=== PATIENT | female | born 1965 | race Caucasian/White ===

== ENCOUNTER 2017-07-26 10:35 | Day surgery (SDC) | payer OTHER, SELFPAY ==
[2017-07-26] VITALS (11 sets, daily range): BP systolic 80–147; BP diastolic 54–97; PULSE 67–99; RESP 15–20; TEMP 36.3; O2SAT 93–98; BMI 30.5
[2017-07-26 11:05] LABS: Urine Pregnancy, HCG Qual. Negative (Negative)
--- NOTE | 2017-07-26 12:12 | HMH.PROC ---
[facility] Procedure Note Procedure Note:: Colonoscopy Procedure Report: Colonoscopy with cold snare polypectomy Endoscopist: Erich Gerard II, MD Referring physician: Jules Johnson MD Date of Procedure: July 26, 2017 Equipment: Olympus 180 variable stiffness pediatric colonoscope Sedation: Fentanyl 200 mg IV/ Versed 9 mg IV Indication: Mrs. Willoughby is a 50-year-old female who is here for initial screening colonoscopy. She has had some diarrhea especially after cholecystectomy 5 years ago. She has had no recent change in bowel habits. She reports no abdominal pain, weight loss, rectal bleeding or family history of an cancer. Procedure: Prior to the procedure, a history and physical exam was performed, and patient's medications and allergies were reviewed. The risks, benefits and alternatives of the sedation and procedure were discussed with the patient. All questions were answered and informed consent was obtained. The patient was brought to the procedure room. Patient identification and proposed procedure were verified by the physician and the nurse. The patient was placed in a left lateral decubitus position and the scope was passed under direct vision. Throughout the procedure, the patient's blood pressure, pulse, and oxygen saturations were monitored continuously. The colonoscopy was accomplished without difficulty. The patient tolerated the procedure well. Findings: On digital rectal examination there was normal rectal tone. There were no external hemorrhoids. The colonoscope was introduced through the anal canal to the rectum and advanced to the cecum. The ileocecal valve and appendiceal orifice were identified. The scope was advanced a short distance into the ileum which appeared grossly normal. The scope was then withdrawn into the colon. The cecum, ascending and transverse colon and mucosa were grossly normal. There was a single 6 mm polyp in the descending colon removed via cold snare polypectomy. There were scattered diverticuli throughout the descending and sigmoid colon (LEFT colon). The rectum itself was normal. Upon retroflexion within the rectum there were grade 1 internal hemorrhoids. Impression: 1. Descending colon polyp 2. Left-sided diverticulosis 3. Grade 1 internal hemorrhoids Plan: I will follow up the polyp histology. If the polyp is adenomatous, I would recommend repeat screening/surveillance colonoscopy in 5 years. I would recommend Colestid 2 g p.o. twice daily for her cholerrheic diarrhea.
== END 2017-07-26 12:55 | disposition home or self-care (01) ==
LOC: OUTP 10:38
PROVIDERS: PCP Family Medicine; Visit Provider Internal Medicine Gastroenterology
PROC: 0DJD8ZZ Inspection of Lower Intestinal Tract, Via Natural or Artificial Opening Endoscopic (ICD-10-PCS; CPT 45378; principal; 2017-07-26 11:30)
DX: Z12.11 Encounter for screening for malignant neoplasm of colon (principal); K63.5 Polyp of colon; K57.30 Diverticulosis of large intestine without perforation or abscess without bleeding; K64.0 First degree hemorrhoids
CPT/HCPCS: 45380; 81025; 99152

== ENCOUNTER → 2019-10-01 11:45 | Outpatient (CLI) | payer OTHER, SELFPAY ==
--- NOTE | 2019-10-01 | XR_ITS ---
PROCEDURE: XR THORACIC SPINE 3V CLINICAL INDICATION: Right-sided back pain COMPARISON: No exams were available for comparison FINDINGS: There is minimal lower thoracic curvature convex left. Mild multilevel degenerative disc disease is present in the mid and lower thoracic spine with decrease in the disc space and osteophyte formation. No fracture or dislocation. No lytic or blastic change. IMPRESSION: Degenerative changes mid and lower thoracic spine Dictated by: Carlos Enrique Astorga MD 10/01/2019 12:49 Electronically signed by Carlos Enrique Astorga MD in [place] 10/01/2019 12:49
--- NOTE | 2019-10-01 | XR_ITS ---
PROCEDURE: XR LUMBAR SPINE MIN 4V CLINICAL INDICATION: Right-sided back pain COMPARISON: No exams were available for comparison FINDINGS: Normal alignment. No fracture or dislocation. There are minimal endplate hypertrophic changes at L2 and L3. Mild facet arthritic changes are present on the left at L5-S1. No lytic or blastic change. IMPRESSION: Mild degenerative changes Dictated by: Carlos Enrique Astorga MD 10/01/2019 12:48 Electronically signed by Carlos Enrique Astorga MD in [place] 10/01/2019 12:48
== END ==
PROVIDERS: PCP Family Medicine; Visit Provider Family Medicine
DX: M54.6 Pain in thoracic spine (principal); M54.5 Low back pain
CPT/HCPCS: 72072; 72110

== ENCOUNTER 2019-10-16 09:00 | Outpatient (RCR) | payer OTHER, SELFPAY ==
--- NOTE | 2019-10-13 09:19 | HMH.PTOPEV ---
PT Outpatient Evaluation Rehab PT Outpatient Evaluation Start: 10/13/19 09:10 Freq: Status: Active Protocol: Document 10/13/19 09:10 JENNY (Rec: 10/13/19 09:19 JENNY [id number]) Electronically Signed By Bradley Patel, PT 10/13/19 09:10 Outpatient Therapy Subjective History Subjective History Pt reports h/o chronic mid back and LBP for ~10yrs, however, reports exacerbation over the last ~2months. Pt reports no radicular s/s in LE 's, however, reports severe L= R sided thoracic and lumbar region pain. Chief Complaint Pain,Stiff Symptom Type Ache,Sharp,Dull,Burning Symptoms Relieved By Rest/Positioning,OTC Meds Symptoms Aggravated By Bending/Stooping,Physical Activity,Lifting Prior Functional Limitations Lifting,Housework Current Functional Limitations Lifting,Housework,Standing, Sitting,Walking,Bending/ Stooping Symptom Description Constant but Variable Level of pain today (0-10) 5 Pain scale - at its best (0-10) 5 Pain scale - at its worst (0-10) 9 Lumbopelvic Eval Posture Thoracic Spine Posture Standing Position Neutral Lumbar Spine Posture Standing Position Neutral Assistive device Assistive Devices None / NA Gait Observation General Gait Pattern Observation Antalgic Gait Palapation tenderness bilateral thoracic spinal tenderness Yes: 3/4 lumbar spinal tenderness Yes: 3/4 paraspinal tenderness Yes: 3/4 Lumbar/Sacral Palpation Findings Tenderness,Trigger Point, Muscle Guarding Accessory Movement T-spine Vertebrae Accessory Movements Central P/A Lenora that Elicit Symptoms T10 bilateral T11 bilateral T12 bilateral L-spine Vertebrae Accessory Movements Central P/A Lenora that Elicit Symptoms L2 bilateral L3 bilateral L4 bilateral L5 bilateral S1 bilateral Range of Motion Lumbar Spine Active Flexion Range of 0-25 Motion (degrees) Lumbar Spine Active Extension Range of 0-10 Motion (degrees) Left Lumbar Spine Lateral Flexion Active 0-20 Range of Motion (degrees) Right Lumbar Spine Lateral Flexion 0-20 Active Range of Motion (degrees) Lumbar Spine ROM Limitations Soft Tissue Tightness,Pain Manual Muscle Test Bilateral Knee Extension Strength Grade
== END 2019-10-16 09:05 | disposition home or self-care (01) ==
LOC: PT 09:00
PROVIDERS: Visit Provider Family Medicine
DX: M54.5 Low back pain (principal); M54.6 Pain in thoracic spine
CPT/HCPCS: 97010; 97014; 97035; 97110; 97140; 97163; G0283

== ENCOUNTER → 2019-11-17 08:14 | Outpatient (POV) | payer OTHER, SELFPAY | PROVIDERS: PCP Family Medicine; Visit Provider Physician Assistant | DX: Z00.00 Encounter for general adult medical examination without abnormal findings (principal) ==

== ENCOUNTER → 2020-03-15 17:35 | Outpatient (CLI) | payer OTHER, SELFPAY ==
[2020-03-15 18:31] LABS: Basophils # 0.1 K/mm3 (0-0.2); Basophils % 1.3 % (0.1-2.0); Eosinophils # 0.2 K/mm3 (0.0-0.4); Eosinophils % 3.2 % (0.1-12.0); Hematocrit 46.4 % (37.0-47.0); Hemoglobin 14.8 g/dL (12.2-16.2); Lymphocytes # 2.1 K/mm3 (0.7-4.5); Lymphocytes % 31.5 % (10-50); Mean Corpuscular HGB Conc 31.8 g/dL (31.8-35.4); Mean Corpuscular Hemoglobin 31.2 pg (27.0-31.2); Mean Corpuscular Volume 98.1 fl (81-99); Mean Platelet Volume 10.2 fl (7.4-10.4); Monocytes # 0.5 K/mm3 (0.1-1.0); Monocytes % 6.9 % (1.7-9.3); Neutrophils # 3.8 K/mm3 (1.8-7.8); Neutrophils % 57.1 % (37.0-80.0); Platelet Count 324 K/mm3 (142-424); Red Blood Count 4.72 M/mm3 (4.20-5.40); White Blood Count 6.7 K/mm3 (4.8-10.8)
[2020-03-15 18:37] LABS: Alanine Aminotransferase 12 U/L (12-78); Albumin Level 4.5 g/dl (3.5-5.0); Albumin/Globulin Ratio 1.6 (1.1-1.8); Alkaline Phosphatase 60 U/L (38-126); Anion Gap 11.5 mEq/L (5-15); Aspartate Amino Transferase 20 U/L (14-36); Bilirubin,Total 0.5 mg/dl (0.2-1.3); Blood Urea Nitrogen 13 mg/dl (7-17); Calcium 9.9 mg/dl (8.4-10.2); Carbon Dioxide 26 mmol/L (22.0-30.0); Chloride 108 mmol/L (98-107); Chol/HDL Ratio 4.5 (1-3.5); Cholesterol 241 mg/dl (140-200); Estimated Glomerular Filt Rate 104 ml/min (>60); GFR (African American) 126 ML/MIN (>60); Globulin 2.8 g/dL (1.3-3.2); Glucose 117 mg/dl (74-100); HDL Cholesterol 54 mg/dl (40-60); Potassium 3.5 mmoL/L (3.5-5.1); Sodium 142 mmol/L (136-145); Total Protein,Serum 7.3 g/dl (6.3-8.2); Triglycerides 196 mg/dl (30-150); VLDL Cholesterol 39 mg/dL (0-40)
[2020-03-15 18:50] LABS: 25-OH Vitamin D, Total 43.8 ng/mL (30-100); Direct LDL Cholesterol 163.05 mg/dL (100-129)
== END ==
LOC: LAB.DROPOF 17:35
PROVIDERS: Visit Provider Emergency Medicine
DX: I10 Essential (primary) hypertension (principal); E55.9 Vitamin D deficiency, unspecified; R53.83 Other fatigue
CPT/HCPCS: 80053; 80061; 82306; 84439; 84443; 85025

== ENCOUNTER → 2020-04-16 08:15 | Outpatient (CLI) | payer OTHER, SELFPAY ==
--- NOTE | 2020-04-16 08:28 | MR_ITS ---
PROCEDURE: MR LUMBAR SPINE WO CON MRI 3D reconstruction 'myelogram' image set included Referring Doctor: Vicente Jolley Patient Age:55Y CLINICAL INDICATION: back pain Chronic low back pain with no known injury or trauma. Hurts everywhere longstanding. COMPARISON: CR XR LUMBAR SPINE MIN 4V from 10/01/2019 TECHNIQUE: Standard multiplanar multiecho sequences are performed without contrast. 3-D MIP and myelographic images are also rendered and reviewed FINDINGS: Vertebral bodies intact and the disc spaces disc heights are fairly well maintained. Only slight loss of hydration L4/5-L5/S1 Conus ends appropriately at L1 adequate volume underlying osseous spinal canal. L5/S1 mild diffuse disc bulge posteriorly. Mild/moderate bilateral facet hypertrophy. The combination these features yields [id number] foraminal encroachment on left more so than right L4/5. Mild foraminal disc bulge bilateral. Bilateral facet hypertrophy most pronounced to the right, and slightly indents the right aspect of the thecal sac. Combination of above features yields yield mild/moderate bilateral recess and foraminal encroachment along with slight overall narrowing the spinal canal. Appearance approaching borderline spinal stenosis With the above features the 3D myelogram images at this level shows slight tapering thecal sac at this L4/5 level. There is lack of filling of the exiting nerve roots bilaterally with mild indentation upon them right aspect of thecal sac at this level canal due to the facet hypertrophy. Any specific L4 radicular symptoms? L3/4, L2/3, L1/2 disc intact. . Degenerative the disc space narrowing at T11/12 but no posterior disc bulge. Anterior marginal osteophytes and disc bulge at this T11/12 level. Small perineural cyst right neural foramennot of significance . There may also be some tiny perineural cysts along the nerve root sleeve at sacrum S2 level-not of significance No obvious or significant appearing retroperitoneal findings. Aorta normal caliber-no aneurysm IMPRESSION: Developing degenerative changes at the lower L-spine L4/5.: Mild foraminal disc bulge along with facet hypertrophy most notable on right, slight indents the thecal sac on the right. The combination of features yields mild/moderate bilateral foraminal encroachment. Mild tapering of the central canal with borderline spinal stenosis at this level L5/S1. Mild diffuse disc bulge, along with mild/moderate facet hypertrophy yields moderate bilateral foraminal encroachment most evident to the left this level.. Dictated by: Raul Frank MD 04/18/2020 09:39 Raul Frank MD in [place] 04/18/2020 09:39
== END ==
PROVIDERS: PCP Emergency Medicine; Referring Provider Emergency Medicine; Visit Provider Emergency Medicine
DX: M54.16 Radiculopathy, lumbar region (principal)
CPT/HCPCS: 72148; 76376

== ENCOUNTER → 2020-06-13 11:33 | Outpatient (CLI) | payer OTHER, SELFPAY | PROVIDERS: PCP Family Medicine; Visit Provider Family Medicine | DX: Z11.52 Encounter for screening for COVID-19 (principal) | CPT/HCPCS: U0003 ==

== ENCOUNTER → 2020-06-23 12:53 | Outpatient (POV) | payer OTHER, SELFPAY ==
[2020-06-23 13:34] VITALS: BP 150/98; PULSE 74; RESP 18; O2SAT 98; BMI 29.9
--- NOTE | 2020-06-23 17:22 | HMH.PMCON ---
Assessment and Plan (1) Back pain Status: Chronic Category: Medical Code(s): M54.9 - Dorsalgia, unspecified (2) Degenerative disc disease Status: Chronic Category: Medical (3) Lumbar radiculopathy Status: Chronic Category: Medical Code(s): M54.16 - Radiculopathy, lumbar region - Assessment and plan all Dx Assessment and Plan for all problems:: At this time the patient does not want a move forward with any epidural injections or getting a referral to a neurosurgeon. She wants to discuss this with her primary care. I do believe she would be a candidate for a epidural injection however at this time she would like to hold off we did provide education for her. If she would like a referral to a neurosurgeon I would be happy to make that for her. She has been instructed to call our office if she would like to move forward with this. Dr. Andujar has reviewed this note and agrees with this plan of care. This note was dictated using voice recognition software and may contain errors or omissions HPI - Data of Consult Consult date: 06/23/20 Requesting Physician: Suzanne Duarte APRN Primary Care Provider: FANNIE Carlos - Consult Narrative Reason for consult: Back pain, leg pain, shoulder pain History of present illness: Ms. Willoughby is a 55 year old female who presents today with multiple issues including back pain, left knee Pain, right shoulder pain. She states her worst pain is her back. She rates an 8 out of 10. She states increased activity increases the pain well nothing decreases it. Patient has tingling and pain in bilateral lower extremities. Patient has an MRI. She is currently on Percocet 5 4 times a day from her primary care physician. Patient is uninterested in injective therapy at this time. Patient's states this did not work for him. Patient and I discussed a potential neurosurgical consultation to which she is hesitant. Patient's states that a neurosurgeon messed up my brother . Patient states that she would be interested in getting a consultation potentially from someone who was not this surgeon. 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 CC: Suzanne Duarte APRN [facility] History I have reviewed the patient's past medical history: Yes Medical History: Reports:: Gall Bladder Disease, Hyperlipidemia, Hypertension, Palpitations Denies:: Cancer, Diabetes Mellitus Type 1, Diabetes Mellitus Type 2, Internal Pacemaker, Lung Disease, MRSA, Seizures *Have you ever received a pneumonia vaccine?: No *Have you received a flu vaccine this season?: No Other Medical History: Reports: Arthritis Other Surgeries: Yes: Appendectomy, Cholecystectomy, Tubal Ligation. No: Pacemaker Amputation: No Fractures: No - *Social History Smoking Status: Current every day smoker Tobacco Type: cigarettes # Packs/Day (cigarettes): 1 Alcohol Intake: never Alcohol Intake Frequency:: a few times a month Substance Use Type: denies use *Occupational Status:: employed Housing: house Household Members: other *Travel in the last 8 weeks: None Family Hx:: Unable to obtain Review of Systems - Review of Systems ROS General: no recent weight change, no fever, no sleep disturbances Respiratory: no cough, no shortness of air, no recurring pulmonary infections Cardiovascular/Peripheral Vascular: No chest pain, No palpitations, no edema, no shortness of breath. Gastrointestinal: no new onset incontinence, normal bowel movements reported Genitourinary: no new onset incontinence Musculoskeletal: Back pain, leg pain Psychiatric: normal mood/ affect Neurological: [denies new onset weakness in extremities], [denies new onset balance issues] Meds Home Medications Medication Instructions Recorded Confirmed Type Ibuprofen [Ibuprofen 800mg Tab] 800 mg PO Q8HP PRN #15 tab 03/07/18 06/10/20 Rx gabapentin 100 mg capsule 100 mg
== END ==
LOC: SC.PAIN 12:54
PROVIDERS: PCP Physician Assistant; Visit Provider Clinical Nurse Specialist Family Health
DX: M54.9 Dorsalgia, unspecified (principal); M54.16 Radiculopathy, lumbar region
CPT/HCPCS: 99202; G0463

== ENCOUNTER → 2020-08-02 13:24 | Outpatient (CLI) | payer OTHER, SELFPAY ==
--- NOTE | 2020-08-02 13:28 | XR_ITS ---
PROCEDURE: XR SHOULDER RT MIN 2V CLINICAL INDICATION: right shoulder pain COMPARISON: No exams were available for comparison FINDINGS: No fracture or dislocation. No lytic or blastic change. There is normal mineralization. There are minimal osteoarthritic changes of the glenohumeral joint. No significant subacromial stenosis. Other findings:None. IMPRESSION: Minimal osteoarthritic change glenohumeral joint Dictated by: Carlos Enrique Astorga MD 08/02/2020 16:26 Carlos Enrique Astorga MD in [place] 08/02/2020 16:26
== END ==
LOC: RAD 13:25
PROVIDERS: PCP Emergency Medicine; Visit Provider Orthopaedic Surgery
DX: M25.511 Pain in right shoulder (principal)
CPT/HCPCS: 73030

== ENCOUNTER → 2020-08-05 17:27 | Outpatient (CLI) | payer OTHER, SELFPAY ==
[2020-08-05 18:45] LABS: Amphetamine/Metha Screen,Urine Negative ng/ml (<1000)
[2020-08-05 18:46] LABS: Barbiturates Screen,Urine Negative ng/ml (<200)
[2020-08-05 18:47] LABS: Benzodiazepines Screen,Urine Negative ng/ml (<200); Cannabinoid Screen,Urine Negative ng/ml (<50)
[2020-08-05 18:48] LABS: Cocaine Screen,Urine Negative ng/ml (<300)
[2020-08-05 18:49] LABS: Methadone Screen,Urine Negative ng/ml (<300); Opiate Screen,Urine Negative ng/ml (<300)
[2020-08-05 18:50] LABS: Phencyclidine Screen,Urine Negative ng/ml (<25)
== END ==
LOC: LAB.DROPOF 17:28
PROVIDERS: Visit Provider Emergency Medicine
DX: M54.16 Radiculopathy, lumbar region (principal); Z79.899 Other long term (current) drug therapy
CPT/HCPCS: 80305

== ENCOUNTER → 2020-08-15 13:33 | Outpatient (CLI) | payer OTHER, SELFPAY ==
--- NOTE | 2020-08-15 13:33 | MR_ITS ---
PROCEDURE: MR SHOULDER RT WO CON CLINICAL INDICATION: evaluate for rotator cuff tear Limited range of motion with tingling in the forearm COMPARISON: CR XR SHOULDER RT MIN 2V from 08/02/2020 TECHNIQUE: Routine multiplanar multi echo sequences are performed without gadolinium enhancement. FINDINGS: Hypertrophic changes are present at the acromioclavicular joint. Small amount fluid is present inferior to the acromion and deep to the deltoid muscle. There is thickening of the supraspinatus tendon with heterogeneous increased signal consistent with tendinopathy/tendinosis. A partial tear is present involving the distal aspect of the supraspinatus tendon posteriorly at the greater tubercle insertion. A complete or full-thickness tear is not felt to be present. The infraspinatus, subscapularis, and teres minor tendons are intact. No obvious labral tear. The bicipital tendon is in place. Small subcortical cysts are present in the humeral head posteriorly. IMPRESSION: Tendinopathy/tendinosis of the supraspinatus tendon with a partial tear distally and posteriorly. Osteoarthritic change of the acromioclavicular joint. There is a small amount fluid in the subdeltoid region and subacromial area Dictated by: Carlos Enrique Astorga MD 08/17/2020 15:19 Carlos Enrique Astorga MD in [place] 08/17/2020 15:19
== END ==
LOC: RAD 13:33
PROVIDERS: PCP Emergency Medicine; Visit Provider Orthopaedic Surgery
DX: M25.511 Pain in right shoulder (principal)
CPT/HCPCS: 73221

== ENCOUNTER → 2020-08-16 08:32 | Outpatient (CLI) | payer OTHER, SELFPAY ==
--- NOTE | 2020-08-16 08:33 | MM_ITS ---
PROCEDURE: MM DIG SCREENING MAMM BI W/CAD Digital Breast Tomosynthesis Included CLINICAL INDICATION: screening There is no personal or family history of breast cancer. COMPARISON: MG MA MAMMO [facility] from 02/20/2012 TECHNIQUE: Standard CC and MLO images and 3D Tomosynthesis was obtained. R2 CAD reviewed. FINDINGS: Scattered fibroglandular densities are seen throughout both breasts. There is a stable nodular density with somewhat lobulated contours at approximately the 5 o'clock position with a biopsy clip associated. This nodule seen on the previous mammogram 02/20/2012 and apparently there has been an interval biopsy as the overall size of this nodular lesion is smaller than the previous exam. However there is a new similar-appearing nodule just deep and slightly lateral to the nipple at approximately the 7 o'clock position with similar features with somewhat lobulated borders likely representing a cyst. There are 2 benign-appearing nodular lesions left breast which were not seen previously. However recommend the patient return for ultrasound of both breasts for better evaluation. There are no suspicious microcalcifications.. IMPRESSION: Moderate diffuse breast density with new nodular lesions seen in both breasts BI-RAD Category: 0 Need Additional Imaging Evaluation FOLLOW-UP: IMM Immediate Follow-up Recommended (A letter has been sent to the patient regarding results of the study.) Dictated by: Dr. Waylon Hayden MD 08/23/2020 09:45 Dr. Waylon Hayden MD in [place] 08/23/2020 09:45
== END ==
PROVIDERS: PCP Emergency Medicine; Visit Provider Emergency Medicine
DX: Z12.31 Encounter for screening mammogram for malignant neoplasm of breast (principal)
CPT/HCPCS: 77063; 77067

== ENCOUNTER → 2020-08-18 14:01 | Outpatient (POV) | payer OTHER, SELFPAY ==
--- NOTE | 2020-08-18 14:36 | HMH.PAINSOAP ---
[facility] Pain Management SOAP Note Subjective:: Patient is a pleasant 55-year-old white female who presents today for follow-up. Patient was seen and offered epidural injections at her last visit. She is decided she would like to move forward with this. She rates her pain a 5 out of 10 mostly in her low back and bilateral lower extremities. Patient has tried and failed medications, physical therapy. Patient and I had a discussion in regards to epidural injections and the procedure itself along with risks and benefits. She would like to proceed. ROS General: no recent weight change, no fever, no sleep disturbances Respiratory: no cough, no shortness of air, no recurring pulmonary infections Cardiovascular/Peripheral Vascular: No chest pain, No palpitations, no edema, no shortness of breath. Gastrointestinal: no new onset incontinence, normal bowel movements reported Genitourinary: no new onset incontinence Musculoskeletal: Back pain, leg pain Psychiatric: normal mood/ affect Neurological: [denies new onset weakness in extremities], [denies new onset balance issues] Objective:: Physical Exam General: Alert and oriented x3, no acute distress, pleasant and cooperative, [on room air] Lungs: Resps E/U, Symmetrical chest expansion, Eyes: PERRL Musculoskeletal: Flexion and extension of lumbar spine somewhat guarded secondary to pain, deep tendon reflexes normal, strength in upper and lower extremities [5/5], [abnormal gait noted] Neurological: speech clear, law professor equal, no gross sensory deficits Assessment:: Degenerative disc disease lumbar spine lumbar radiculopathy, back pain Plan:: We will set the patient up for an L4-L5 lumbar epidural steroid injection. Patient is not on any anticoagulation therapy. I will follow-up with her after this reassess her symptoms at that time she has been instructed to call the office if she has any issues prior to her next appointment. Dr. Andujar has reviewed this note and agrees with this plan of care. This note was dictated using voice recognition software and may contain errors or omissions [facility] History I have reviewed the patient's past medical history: Yes Medical History: Reports:: Gall Bladder Disease, Hyperlipidemia, Hypertension, Palpitations Denies:: Cancer, Diabetes Mellitus Type 1, Diabetes Mellitus Type 2, Internal Pacemaker, Lung Disease, MRSA, Seizures *Have you ever received a pneumonia vaccine?: No *Have you received a flu vaccine this season?: No Other Medical History: Reports: Arthritis Other Surgeries: Yes: Appendectomy, Cholecystectomy, Tubal Ligation. No: Pacemaker Amputation: No Fractures: No - *Social History Smoking Status: Current every day smoker Tobacco Type: cigarettes # Packs/Day (cigarettes): 1 Alcohol Intake: never Alcohol Intake Frequency:: a few times a month Substance Use Type: denies use *Occupational Status:: employed Housing: house Household Members: other *Travel in the last 8 weeks: None Family Hx:: Unable to obtain
[2020-08-18 14:38] VITALS: BP 128/78; PULSE 74; RESP 18; O2SAT 98; BMI 29.9
== END ==
LOC: SC.PAIN 14:02
PROVIDERS: PCP Emergency Medicine; Visit Provider Clinical Nurse Specialist Family Health
DX: M51.16 Intervertebral disc disorders with radiculopathy, lumbar region (principal)
CPT/HCPCS: 99212; G0463

== ENCOUNTER 2020-09-02 11:06 | Day surgery (SDC) | payer OTHER, SELFPAY ==
[2020-09-02 12:23] VITALS: BP 149/94; PULSE 78; RESP 18; TEMP 36.6; O2SAT 98; BMI 29.9
--- NOTE | 2020-09-02 12:38 | HMH.PMPROC ---
- Procedure Date: 09/02/20 Time: 12:38 Anesthesiologist:: Michael Andujar MD Complications:: None Pre-procedure Diagnosis:: Degenerative disc disease of lumbar spine with lumbar radiculopathy symptoms Post-procedure Diagnosis:: Same Indications for Procedure:: Patient is a pleasant 55-year-old white female who we are treating for low back pain with lumbar radiculopathy symptoms. She has increasing low back pain with radiation down both legs. Will do lumbar epidural steroid injection today to help her with her pain symptoms. Procedure Details:: Lumbar epidural steroid injection under fluoroscopy Informed consent was obtained and the risk and benefits of the procedure was explained to the patient. The patient was taken to the procedure room. The patient was placed prone on the procedure table. The patient was prepped and draped in sterile fashion. C-arm fluoroscopy was used to view the lumbar spine. Skin and subcutaneous tissues were anesthetized using lidocaine. I placed an 18-gauge epidural needle and advanced into the L4-L5 interspace using fluoroscopic guidance and [id number] to air. After confirmation of needle placement in the epidural space with dye I injected 2 mL of lidocaine 1.5% with Depo-Medrol 80 mg. Patient tolerated the procedure well with no complications. Plan and Disposition:: We will follow-up with her in 2 weeks. Will reevaluate symptoms at that time.
[2020-09-02 12:42] VITALS: BP 135/78; PULSE 84; RESP 18; O2SAT 98
[2020-09-02 12:43] VITALS: BP 135/78; PULSE 87; RESP 18; O2SAT 98
[2020-09-02 13:01] VITALS: BP 155/95; PULSE 75; RESP 18; O2SAT 98
== END 2020-09-02 13:02 | disposition home or self-care (01) ==
PROVIDERS: PCP Emergency Medicine; Visit Provider Anesthesiology
DX: M51.16 Intervertebral disc disorders with radiculopathy, lumbar region (principal); I10 Essential (primary) hypertension; E78.5 Hyperlipidemia, unspecified; Z72.0 Tobacco use; E07.9 Disorder of thyroid, unspecified
CPT/HCPCS: 62323; J1040; Q9966

== ENCOUNTER → 2020-09-02 11:10 | Outpatient (CLI) | payer OTHER, SELFPAY ==
--- NOTE | 2020-09-02 12:58 | US_ITS ---
PROCEDURE: US BREAST RT COMPLETE CLINICAL INDICATION: abn mamm COMPARISON: MG MM DIG SCREENING MAMM BI W/CAD from 08/16/2020 US US BREAST LT COMPLETE from 09/02/2020 FINDINGS: There is a focal hypoechoic lesion noted in the right breast at 4 o'clock position measuring 1.3 x 0.9 times 1.3 centimeters, demonstrates internal calcification. At 4 o'clock position there is a focal anechoic lesion measuring 0.3 centimeters, likely represents a cyst. At 9 o'clock position, there is a septated anechoic lesion noted without significant internal vascularity. Axillary lymph nodes measuring up to 2 centimeters noted in the right axilla. IMPRESSION: Suspicious finding BI-RADS category 4. Recommendation: Ultrasound-guided biopsy of the right breast lesion at 4 o'clock position. FNA of the septated cystic lesion at 9 o'clock position. Dictated by: Augusta Doan 09/02/2020 17:36 Augusta Doan in [place] 09/02/2020 17:36
--- NOTE | 2020-09-02 12:58 | US_ITS ---
PROCEDURE: US BREAST LT COMPLETE CLINICAL INDICATION: abn mamm COMPARISON: MG MM DIG SCREENING MAMM BI W/CAD from 08/16/2020 FINDINGS: Focal anechoic lesion is noted at 12 o'clock position in the left breast measuring 0.7 x 0.2 times 0.7 centimeters, demonstrates minor internal echogenicities. No significant vascularity is noted. No other focal masses or suspicious findings. IMPRESSION: Findings are suggestive of a cyst. Ultrasound follow-up in 6 months is recommended. BI-RADS category 3, Probably benign finding. Dictated by: Augusta Doan 09/02/2020 17:38 Augusta Doan in [place] 09/02/2020 17:38
== END ==
LOC: RAD 11:11
PROVIDERS: PCP Emergency Medicine; Visit Provider Emergency Medicine
DX: R92.8 Other abnormal and inconclusive findings on diagnostic imaging of breast (principal)
CPT/HCPCS: 76641

== ENCOUNTER → 2020-09-22 12:53 | Outpatient (CLI) | payer OTHER, SELFPAY ==
--- NOTE | 2020-09-22 13:47 | MM_ITS ---
PROCEDURE: US BIOPSY BREAST RT CLINICAL INDICATION: breast lesion New breast nodule COMPARISON: MG MM DIG SCREENING MAMM BI W/CAD from 08/16/2020 US US BREAST LT COMPLETE from 09/02/2020 US US BREAST RT COMPLETE from 09/02/2020 MG MM DIG MAMM DX UNILAT RT CAD from 09/22/2020 FINDINGS: On the previous ultrasound, recommendation was made to do a biopsy of the 4 lesion at 4 o'clock and an FNA of the complex cyst at 9 o'clock. However, the patient has had a previous biopsy at the 4 o'clock position with a clip in place therefore, that biopsy was not performed. Following obtaining informed consent under aseptic conditions and local anesthesia with 1 percent buffered lidocaine, a 21 gauge needle is inserted into the cyst at 9 o'clock. Approximately 5 mL of greenish fluid was aspirated and sent to cytology. Cytology is pending. Post biopsy mammogram: Previously described nodule at 9 o'clock in the lateral aspect of the right breast is no longer apparent. The previously biopsied nodule at 4 o'clock is unchanged. IMPRESSION: Uneventful ultrasound-guided cyst aspiration of the right breast at 9 o'clock. Cytology pending Dictated by: Carlos Enrique Astorga MD 09/24/2020 18:02 Carlos Enrique Astorga MD in [place] 09/24/2020 18:02
== END ==
LOC: RAD 12:53
PROVIDERS: PCP Emergency Medicine; Visit Provider Emergency Medicine
DX: R92.8 Other abnormal and inconclusive findings on diagnostic imaging of breast (principal)
CPT/HCPCS: 10005; 19083; 77061; 77065; G0279

== ENCOUNTER → 2020-10-03 14:51 | Outpatient (CLI) | payer OTHER, SELFPAY ==
[2020-10-03 15:48] LABS: Amphetamine/Metha Screen,Urine Negative ng/ml (<1000); Barbiturates Screen,Urine Negative ng/ml (<200)
[2020-10-03 15:49] LABS: Benzodiazepines Screen,Urine Negative ng/ml (<200)
[2020-10-03 15:50] LABS: Cannabinoid Screen,Urine Negative ng/ml (<50)
[2020-10-03 15:52] LABS: Methadone Screen,Urine Negative ng/ml (<300)
[2020-10-03 15:53] LABS: Phencyclidine Screen,Urine Negative ng/ml (<25)
[2020-10-03 16:01] LABS: Opiate Screen,Urine Negative ng/ml (<300)
[2020-10-03 16:07] LABS: Cocaine Screen,Urine Negative ng/ml (<300)
== END ==
PROVIDERS: Visit Provider Emergency Medicine
DX: M54.16 Radiculopathy, lumbar region (principal)
CPT/HCPCS: 80305

== ENCOUNTER → 2020-11-29 14:44 | Outpatient (POV) | payer OTHER, SELFPAY | PROVIDERS: Visit Provider Dermatology | DX: Z00.00 Encounter for general adult medical examination without abnormal findings (principal) ==

== ENCOUNTER → 2020-11-29 17:22 | Outpatient (CLI) | payer OTHER, SELFPAY ==
[2020-11-29 19:25] LABS: Amphetamine/Metha Screen,Urine Negative ng/ml (<1000)
[2020-11-29 19:28] LABS: Barbiturates Screen,Urine Negative ng/ml (<200)
[2020-11-29 19:29] LABS: Benzodiazepines Screen,Urine Negative ng/ml (<200)
[2020-11-29 19:30] LABS: Cannabinoid Screen,Urine Negative ng/ml (<50); Methadone Screen,Urine Negative ng/ml (<300)
[2020-11-29 19:31] LABS: Opiate Screen,Urine Positive ng/ml (<300)
[2020-11-29 19:32] LABS: Cocaine Screen,Urine Negative ng/ml (<300)
[2020-11-29 19:33] LABS: Phencyclidine Screen,Urine Negative ng/ml (<25)
== END ==
PROVIDERS: Visit Provider Emergency Medicine
DX: M54.16 Radiculopathy, lumbar region (principal)
CPT/HCPCS: 80305

== ENCOUNTER → 2021-01-17 10:17 | Outpatient (CLI) | payer OTHER, SELFPAY | PROVIDERS: PCP Emergency Medicine; Visit Provider Emergency Medicine | DX: Z20.822 Contact with and (suspected) exposure to COVID-19 (principal) | CPT/HCPCS: U0003 ==

== ENCOUNTER → 2021-01-27 17:41 | Outpatient (CLI) | payer OTHER, SELFPAY ==
[2021-01-27 19:31] LABS: Amphetamine/Metha Screen,Urine Negative ng/ml (<1000)
[2021-01-27 19:32] LABS: Barbiturates Screen,Urine Negative ng/ml (<200); Benzodiazepines Screen,Urine Negative ng/ml (<200)
[2021-01-27 19:33] LABS: Cannabinoid Screen,Urine Negative ng/ml (<50)
[2021-01-27 19:34] LABS: Cocaine Screen,Urine Negative ng/ml (<300); Methadone Screen,Urine Negative ng/ml (<300)
[2021-01-27 19:35] LABS: Opiate Screen,Urine Negative ng/ml (<300)
[2021-01-27 19:36] LABS: Phencyclidine Screen,Urine Negative ng/ml (<25)
== END ==
PROVIDERS: Visit Provider Emergency Medicine
DX: Z11.52 Encounter for screening for COVID-19 (principal); J34.89 Other specified disorders of nose and nasal sinuses; Z79.899 Other long term (current) drug therapy
CPT/HCPCS: 80305; U0003

== ENCOUNTER → 2021-03-29 18:34 | Outpatient (CLI) | payer OTHER, SELFPAY ==
[2021-03-29 20:29] LABS: Amphetamine/Metha Screen,Urine Negative ng/ml (<1000)
[2021-03-29 20:30] LABS: Barbiturates Screen,Urine Negative ng/ml (<200); Benzodiazepines Screen,Urine Negative ng/ml (<200)
[2021-03-29 20:31] LABS: Cannabinoid Screen,Urine Negative ng/ml (<50)
[2021-03-29 20:32] LABS: Cocaine Screen,Urine Negative ng/ml (<300); Methadone Screen,Urine Negative ng/ml (<300)
[2021-03-29 20:34] LABS: Opiate Screen,Urine Positive ng/ml (<300)
[2021-03-29 20:35] LABS: Phencyclidine Screen,Urine Negative ng/ml (<25)
== END ==
PROVIDERS: Visit Provider Emergency Medicine
DX: Z79.899 Other long term (current) drug therapy (principal)
CPT/HCPCS: 80305

== ENCOUNTER → 2021-04-03 09:15 | Outpatient (CLI) | payer OTHER, SELFPAY ==
--- NOTE | 2021-04-03 09:15 | US_ITS ---
PROCEDURE: US BREAST LT COMPLETE CLINICAL INDICATION: 6 mth f/u COMPARISON: US US BREAST LT COMPLETE from 09/02/2020 US US FNA BREAST from 09/22/2020 FINDINGS: A septated cyst is present at 12 o'clock outer measuring 9 x 4 mm. This was not previously demonstrated. At 12 o'clock near the nipple there is a 6 mm septated cyst unchanged. At 4 o'clock near the nipple there is a 7 mm complicated cyst unchanged. There is an isoechoic area behind the nipple measuring 6 x 4 mm which may represent an island of fibroglandular tissue which appears to elongate on transverse imaging. Small nodes are present in the axilla. IMPRESSION: Probably benign findings. Suggest continued mammographic and sonographic follow-up in September of 2021 BI-RADS category 3 probably benign. Recommend six-month mammographic and sonographic follow-up Dictated by: Carlos Enrique Astorga MD 04/13/2021 17:29 Carlos Enrique Astorga MD in [place] 04/13/2021 17:29
--- NOTE | 2021-04-03 09:15 | US_ITS ---
PROCEDURE: US BREAST RT COMPLETE CLINICAL INDICATION: 6 mth f/u COMPARISON: MG MA MAMMO SCRN DIGITL BILAT from 02/20/2012 US US BREAST RT COMPLETE from 09/02/2020 US US FNA BREAST from 09/22/2020 MG MM DIG MAMM DX UNILAT RT CAD from 09/22/2020 US US BREAST LT COMPLETE from 04/03/2021 FINDINGS: 3 mm cyst at 4 o'clock. A 19 x 10 mm solid mass at 4 o'clock near nipple. The mass is wider than tall and well-circumscribed. There is posterior acoustical shadowing. A clip is present inside this lesion. This nodule may be slightly larger by ultrasound however, ultrasound is more tech dependent and mammographies therefore, would recommend mammogram with spot compression views in tomogram images to confirm stability or enlargement of the nodule. At 9 o'clock there to the nipple there is a recurrence 15 x 6 mm cyst. IMPRESSION: 1. 19 x 10 mm solid-appearing mass at 4 o'clock near the nipple. This has been previously biopsied but appears slightly larger by ultrasound compared to the previous exam 09/22/2020. Recommend mammogram for confirmation. 2. Recurrence 15 mm cyst at 9 o'clock. 3. BI-RADS category 0. Additional imaging recommended. Dictated by: Carlos Enrique Astorga MD 04/13/2021 17:40 Carlos Enrique Astorga MD in [facility] 04/13/2021 17:40
== END ==
LOC: RAD 09:15
PROVIDERS: PCP Emergency Medicine; Visit Provider Emergency Medicine
DX: R92.8 Other abnormal and inconclusive findings on diagnostic imaging of breast (principal)
CPT/HCPCS: 76641

== ENCOUNTER → 2021-05-25 07:59 | Outpatient (CLI) | payer OTHER, SELFPAY ==
--- NOTE | 2021-05-25 07:59 | CT_ITS ---
PROCEDURE: CT LUNG SCREENING CLINICAL INDICATION: lung cancer screening COMPARISON: No exams were available for comparison TECHNIQUE: The exam was performed on a GE Light Speed [address] scanner using 2.90 mGy CTDI. A low dose helical CT CHEST was performed on a multi-detector scanner. All CT scans at the facility use one or more dose reduction, viz: automated exposure control, ma/kV adjustment per patient size (including targeted exams where dose is matched to indication, i.e. head), or iterative reconstruction technique. The LDCT was performed in a facility that meets the criteria for the screening program. Data regarding this exam was submitted to ACR which is an approved registry. The order for this exam indicates that it came as a result of a lung cancer screening counseling shard decision-making visit that included all the elements required of such a visit including smoking cessation. The radiologist interpreting this exam meets the CMS criteria for the LDCT lung cancer screening program. The exam is reported using the Lung-RADS classification scale and reported to the ACR registry. NOTE: This study was performed for the specific purposes of lung cancer screening and is not an alternative to diagnostic chest CT. RADIATION DOSE: CTDI vol(CT dose Index-volume) = 2.90mG DLP (Dose Length Product) = 101.34 mGcm FINDINGS: COPD changes with scattered areas of scarring and or atelectatic change. 4 mm noncalcified nodule right lower lobe adjacent to the major fissure. There are a few ground-glass nodular opacities in the right lower lobe which are nonspecific 3 mm or less. Calcified granuloma left lower lobe. No suspicious nodules. OTHER FINDINGS: There is some prominence of the tail the pancreas. This however could be related to the technique and unenhanced exam. Dedicated CT of the pancreas without and with contrast may confirm. IMPRESSION: Lung-RADS Category 2 Benign Appearance or Behavior Follow-up: Continue annual screening with LDCT in [address] of the pancreas without and with contrast concerning the prominence of the pancreatic tail Dictated by: Carlos Enrique Astorga MD 06/02/2021 11:27 Carlos Enrique Astorga MD in [place] 06/02/2021 11:27
== END ==
LOC: RAD 07:59
PROVIDERS: PCP Emergency Medicine; Visit Provider Emergency Medicine
DX: Z87.891 Personal history of nicotine dependence (principal); Z12.2 Encounter for screening for malignant neoplasm of respiratory organs
CPT/HCPCS: 71271

== ENCOUNTER → 2021-06-29 09:37 | Outpatient (CLI) | payer OTHER, SELFPAY ==
--- NOTE | 2021-06-29 10:07 | CT_ITS ---
FINAL REPORT TECHNIQUE: Pre- and postcontrast images of the abdomen were performed by computed tomography. CLINICAL HISTORY: pancreas tail seen on CT lung screen FINDINGS: On the pre infusion images there is no evidence of renal stones. There are mild vascular calcifications in the abdominal aorta. The lung bases are clear. The liver parenchyma is homogeneous. There is mild intra and extra hepatic biliary ductal dilatation. The gallbladder is surgically absent. Calcified granulomas are noted within the spleen. The adrenals are normal. The pancreas is unremarkable. The kidneys enhance appropriately. On the delayed images there is opacification of nondilated pelvic calyceal systems. Noted is made of moderate descending colonic diverticulosis without evidence of diverticulitis. IMPRESSION: Mild to moderate intra and extra hepatic biliary ductal dilatation probably related to prior cholecystectomy. Descending colon diverticulosis with no evidence of diverticulitis. No definite pancreatic mass. Reviewed, Interpreted and Dictated by Jose Carlos Orr MD Transcribed by Carolyne Welsh Authenticated by Jose Carlos Orr MD on 06/29/2021 11:54:25 AM [facility]
[2021-06-29 10:10] LABS: Chloride 106 mmol/L (98-107); Potassium 3.7 mmoL/L (3.5-5.1); Sodium 142 mmol/L (136-145)
[2021-06-29 10:13] LABS: Anion Gap 11.7 mEq/L (5-15); Blood Urea Nitrogen 14 mg/dl (7-17); Carbon Dioxide 28 mmol/L (22.0-30.0); Estimated Glomerular Filt Rate 103 ml/min (>60); GFR (African American) 125 ML/MIN (>60)
[2021-06-29 10:14] LABS: Calcium 9.3 mg/dl (8.4-10.2); Glucose 99 mg/dl (74-100)
[2021-06-29 11:31] LABS: T4 (Thyroxine) 4.8 ug/dl (5.53-11.0)
[2021-07-05 10:12] LABS: Acetone <0.010 g/dL (0.000-0.010); Butalbital <1 ug/mL (1-10); Chlordiazepoxide <0.1 ug/mL (0.1-0.9); Diazepam <0.1 ug/mL (0.1-0.9); Ethanol <0.010 g/dL (0.000-0.010); Isopropanol <0.010 g/dL (0.000-0.010); Pentobarbital <1 ug/mL (1-5)
== END ==
LOC: RAD 09:37
PROVIDERS: PCP Emergency Medicine; Visit Provider Physician Assistant
DX: Z01.818 Encounter for other preprocedural examination (principal); E03.9 Hypothyroidism, unspecified; Q45.3 Other congenital malformations of pancreas and pancreatic duct
CPT/HCPCS: 36415; 74170; 80048; 80306; 84436; 84443; Q9967

== ENCOUNTER → 2021-07-10 16:00 | Outpatient (CLI) | payer OTHER, SELFPAY ==
[2021-07-10 18:28] LABS: Amphetamine/Metha Screen,Urine Negative ng/ml (<1000)
[2021-07-10 18:29] LABS: Barbiturates Screen,Urine Negative ng/ml (<200)
[2021-07-10 18:30] LABS: Benzodiazepines Screen,Urine Negative ng/ml (<200); Cannabinoid Screen,Urine Negative ng/ml (<50)
[2021-07-10 18:31] LABS: Cocaine Screen,Urine Negative ng/ml (<300); Methadone Screen,Urine Negative ng/ml (<300)
[2021-07-10 18:32] LABS: Opiate Screen,Urine Positive ng/ml (<300)
[2021-07-10 18:33] LABS: Phencyclidine Screen,Urine Negative ng/ml (<25)
== END ==
LOC: LAB.DROPOF 07-11 07:14
PROVIDERS: Visit Provider Emergency Medicine
DX: Z79.899 Other long term (current) drug therapy (principal)
CPT/HCPCS: 80305

== ENCOUNTER → 2021-10-31 11:55 | Outpatient (CLI) | payer OTHER, SELFPAY ==
[2021-10-31 19:16] LABS: Amphetamine/Metha Screen,Urine Negative ng/ml (<1000)
[2021-10-31 19:17] LABS: Barbiturates Screen,Urine Negative ng/ml (<200); Benzodiazepines Screen,Urine Negative ng/ml (<200)
[2021-10-31 19:18] LABS: Cannabinoid Screen,Urine Negative ng/ml (<50)
[2021-10-31 19:19] LABS: Cocaine Screen,Urine Negative ng/ml (<300); Methadone Screen,Urine Negative ng/ml (<300)
[2021-10-31 19:20] LABS: Opiate Screen,Urine Positive ng/ml (<300)
[2021-10-31 19:21] LABS: Phencyclidine Screen,Urine Negative ng/ml (<25)
== END ==
LOC: LAB.DROPOF 11-01 11:57
PROVIDERS: PCP Emergency Medicine; Visit Provider Emergency Medicine
DX: M54.9 Dorsalgia, unspecified (principal)
CPT/HCPCS: 80305

== ENCOUNTER 2021-11-25 04:41 | Emergency (ER) | payer OTHER, SELFPAY ==
[2021-11-25 04:42] VITALS: BP 198/118; PULSE 84; RESP 20; TEMP 36.9; O2SAT 97; BMI 30.7
--- NOTE | 2021-11-25 05:12 | HMH.EDGENADL ---
ED Disposition <Digna Gavin - Last Filed: 11/25/21 07:58> Condition on Discharge: Good - Critical Care Critical Care Time: No <Vicente Jolley - Last Filed: 11/25/21 09:09> Clinical Impression: Cough with hemoptysis Disposition: Home, Self-Care Instructions: DI for Hemoptysis Additional Instructions: fluids and see pcp for follow up Prescriptions: predniSONE [Prednisone 20mg Tab] 20 mg PO BID #10 tab Transmission Status: Pending to [facility] Azithromycin [Zithromax 250mg tab] 250 mg PO DIRECTED #6 tab Transmission Status: Pending to [facility] Referrals: Vicente Jolley MD [Primary Care Provider] - Attestation: On 11/25/21, the high probability of a clinically significant, sudden or life threatening deterioration of the following system(s) required my full and direct attention, intervention and personal management. The time I documented below is in addition to time spent performing reported procedures but includes the following listed in this critical care notation. Medical Decision Making - Medical Records Medical records reviewed: Yes: I reviewed the patient's medical records. - Kelvin Inquiry Pt receiving controlled substance: No - Lab Data Lab results reviewed: Yes: I reviewed the patient's lab results. Result diagrams: 11/25/21 05:40 11/25/21 05:40 <Digna Gavin - Last Filed: 11/25/21 07:58> - Lab Data Result diagrams: 11/25/21 05:40 11/25/21 05:40 - Radiology Data #1 Image(s): Chest Image Reviewed: Yes I have reviewed radiologist's interpretation Preliminary Findings: Normal/NAD - CT Data CT Scan: Chest Time Received: 09:[address] Reviewed: Yes: I have viewed the radiologist's interpretation Preliminary Findings: Normal/NAD <Vicente Jolley - Last Filed: 11/25/21 09:09> Vital Signs: 11/25/21 04:42 11/25/21 05:30 Temperature 98.5 F Temperature Source Oral Pulse Rate 78 Pulse Rate [Right] 84 Respiratory Rate 20 Blood Pressure 169/114 H Blood Pressure [Right Arm] 198/118 H Blood Pressure Mean 147 Blood Pressure Mean [Right Arm] 144 Blood Pressure Source [Right Arm] Manual Cuff/ Auscultation 02 Sat by Pulse Oximetry 97 96 Oxygen Delivery Method Room Air Room Air - Lab Data Lab Results 11/25/21 05:40: WBC 6.9, RBC 4.36, Hgb 13.4, Hct 42.0, MCV 96.2, MCH 30.6, MCHC 31.8, RDW 13.2, Plt Count 280, MPV 9.0, Neut % (Auto) 60.3, Lymph % (Auto) 27.3, Mayes % (Auto) 5.8, Eos % (Auto) 4.2, Baso % (Auto) 2.5 H, Neut # (Auto) 4.2, Lymph # (Auto) 1.9, Mayes # (Auto) 0.4, Eos # (Auto) 0.3, Baso # (Auto) 0.2 11/25/21 05:40: Sodium 142, Potassium 3.4 L, Chloride 110 H, Carbon Dioxide 27, Anion Gap 8.4, BUN 13, Creatinine 0.70, Estimated Creat Clear 122, Estimated GFR 87, Est GFR ( Amer) 105, Glucose 104 H, Calcium 9.0, Total Bilirubin 0.2, AST 23, ALT 16, Alkaline Phosphatase 60, Troponin I < 0.01, C-Reactive Protein 1.5, Total Protein 6.6, Albumin 3.8, Globulin 2.8, Albumin/Globulin Ratio 1.4 11/25/21 05:40: D-Dimer 0.61 H 11/25/21 05:40: NT-Pro-B Natriuret Pep 224 H Orders (Tests/Meds): ED MEDICATIONS Discontinued Medications Generic Name Dose Route Start Last Admin Trade Name Marcella PRN Reason Stop Dose Admin Iopamidol 70 ml 11/25/21 07:07 11/25/21 07:08 Iopamidol-370 (76%);100ml Bottle IV 11/25/21 07:08 70 ml ONCE ONE Administration Sodium Chloride 50 ml 11/25/21 07:07 11/25/21 07:08 0.9 % Sodium Chloride 50 Ml Vial IV 11/25/21 07:08 50 ml ONCE ONE Administration Sodium Chloride 10 ml 11/25/21 07:07 11/25/21 07:08 Sodium Chloride 0.9% 10ml Syr (Rad Only) IV 06/25/22 07:08 10 ml ONCE ONE Administration ORDERS Category Date Time Status Troponin I Q3H Lab 11/25/21 08:30 Ordered Troponin I Q3H Lab 11/25/21 11:30 Ordered EKG Request [ECG Request by /Robyn] Stat Y 11/25/21 05:27 Ordered Medical Decision Narrative: Patient is a 56-year-old female presenting
--- NOTE | 2021-11-25 05:27 | XR_ITS ---
PROCEDURE INFORMATION: Exam: XR Chest Exam date and time: 11/25/2021 5:36 AM Age: 56 years old Clinical indication: Other: Hemoptyisis; Additional info: Hemoptysis TECHNIQUE: Imaging protocol: Radiologic exam of the chest. Views: 2 views. COMPARISON: CT LUNG SCREENING 05/25/2021 8:03 AM FINDINGS: Lungs: Unremarkable. No consolidation. Pleural spaces: Unremarkable. No pleural effusion. No pneumothorax. Heart/Mediastinum: Unremarkable. No cardiomegaly. Bones/joints: Unremarkable. IMPRESSION: No acute findings.
[2021-11-25 05:30] VITALS: BP 169/114; PULSE 78; O2SAT 96
--- NOTE | 2021-11-25 05:34 | ECG_ITS ---
APPROVED REPORT Exam: Resting ECG HR:74 bpm ECG Measurements Heart Rate 74 AXES VT 135 P 62 QRSd 89 QRS 16 QT 427 T 86 QTc 454 Conclusion SINUS RHYTHM NORMAL ECG UNCONFIRMED REPORT Electronically signed by : Jules Baker MD 11/25/2021 15:34:46
[2021-11-25 05:49] LABS: Basophils # 0.2 K/mm3 (0-0.2); Basophils % 2.5 % (0.1-2.0); Eosinophils # 0.3 K/mm3 (0.0-0.4); Eosinophils % 4.2 % (0.1-12.0); Hemoglobin 13.4 g/dL (12.2-16.2); Lymphocytes # 1.9 K/mm3 (0.7-4.5); Lymphocytes % 27.3 % (10-50); Mean Corpuscular HGB Conc 31.8 g/dL (31.8-35.4); Mean Corpuscular Hemoglobin 30.6 pg (27.0-31.2); Mean Corpuscular Volume 96.2 fl (81-99); Monocytes # 0.4 K/mm3 (0.1-1.0); Monocytes % 5.8 % (1.7-9.3); Neutrophils # 4.2 K/mm3 (1.8-7.8); Neutrophils % 60.3 % (37.0-80.0); Platelet Count 280 K/mm3 (142-424); Red Blood Count 4.36 M/mm3 (4.20-5.40); Red Cell Distribution Width 13.2 % (11.5-17.5); White Blood Count 6.9 K/mm3 (4.8-10.8)
[2021-11-25 05:59] LABS: Alanine Aminotransferase 16 U/L (12-78); Albumin Level 3.8 g/dl (3.5-5.0); Albumin/Globulin Ratio 1.4 (1.1-1.8); Alkaline Phosphatase 60 U/L (38-126); Anion Gap 8.4 mEq/L (5-15); Aspartate Amino Transferase 23 U/L (14-36); Bilirubin,Total 0.2 mg/dl (0.2-1.3); Blood Urea Nitrogen 13 mg/dl (7-17); Carbon Dioxide 27 mmol/L (22.0-30.0); Chloride 110 mmol/L (98-107); Creatinine Clearance Estimated 122 mL/min (50-200); Estimated Glomerular Filt Rate 87 ml/min (>60); GFR (African American) 105 ML/MIN (>60); Globulin 2.8 g/dL (1.3-3.2); Glucose 104 mg/dl (74-100); Potassium 3.4 mmoL/L (3.5-5.1); Sodium 142 mmol/L (136-145); Total Protein,Serum 6.6 g/dl (6.3-8.2)
[2021-11-25 06:04] LABS: C-Reactive Protein 1.5 mg/L (0-4); D-Dimer 0.61 ug/mL (0.0-0.5)
[2021-11-25 06:10] LABS: NT Pro Brain Natriuretic Pep. 224 pg/mL (0-125)
[2021-11-25 06:13] LABS: Troponin I < 0.01 ng/ml (0.00-0.034)
--- NOTE | 2021-11-25 06:35 | CT_ITS ---
PROCEDURE INFORMATION: Exam: CTA Chest With Contrast Exam date and time: 11/25/2021 6:51 AM Age: 56 years old Clinical indication: Shortness of breath; Additional info: Hemoptysis, elevated d-dimer TECHNIQUE: Imaging protocol: Computed tomographic angiography of the chest with contrast. 3D rendering (Not supervised by radiologist): MIP and/or 3D reconstructed images were created by the technologist. Radiation optimization: All CT scans at this facility use at least one of these dose optimization techniques: automated exposure control; mA and/or kV adjustment per patient size (includes targeted exams where dose is matched to clinical indication); or iterative reconstruction. Contrast material: ISOVUE; Contrast volume: 70 ml; Contrast route: INTRAVENOUS (IV); COMPARISON: CR XR CHEST 2V 11/25/2021 5:36 AM FINDINGS: Pulmonary arteries: Normal. No pulmonary emboli. Aorta: Unremarkable. No aortic aneurysm. No aortic dissection. Lungs: Unremarkable. No consolidation. No masses. Pleural spaces: Unremarkable. No pneumothorax. No pleural effusion. Heart: Unremarkable. No cardiomegaly. No pericardial effusion. Lymph nodes: Unremarkable. No enlarged lymph nodes. Gallbladder and bile ducts: Prior cholecystectomy. Spleen: Calcified splenic granulomas. Bones/joints: Unremarkable. No acute fracture. Soft tissues: Unremarkable. IMPRESSION: 1. No acute chest pathology. 2. Nonacute findings mentioned above.
--- NOTE | 2021-11-25 06:46 | PC.NURSE ---
called radiology to let them know about cta- pe protocol
[2021-11-25 09:29] VITALS: BP 164/106; PULSE 86; RESP 20; TEMP 36.9; O2SAT 97
== END 2021-11-25 09:31 | disposition home or self-care (01) ==
PROVIDERS: Emergency Provider Emergency Medicine; PCP Emergency Medicine
DX: R04.2 Hemoptysis (principal); R05.9 Cough, unspecified; I10 Essential (primary) hypertension; F17.210 Nicotine dependence, cigarettes, uncomplicated
CPT/HCPCS: 71046; 71275; 80053; 83880; 84484; 85025; 85378; 86140; 93005; 96374; 99285; Q9967

== ENCOUNTER 2021-12-05 16:41 | Emergency (ER) | payer OTHER, SELFPAY ==
[2021-12-05 17:25] VITALS: BP 153/97; PULSE 88; RESP 18; TEMP 36.9; O2SAT 98; BMI 31.8
--- NOTE | 2021-12-05 17:52 | HMH.EDUTC ---
[facility] [facility] [place] Clinical Impression: Viral syndrome Disposition: Home, Self-Care Condition on Discharge: Good Instructions: DI for Viral Upper Respiratory Infection -- Adult, DI for COVID-19 (Suspected or Confirmed ), Preventing the Spread of Coronavirus Discharge Instructions Additional Instructions: *Monitor Temp, Over the counter Motrin or Tylenol as directed/as needed Tylenol every 4 hours and Motrin every 6 hours (as long as your family doctor has told you that you can take it) for fever or pain. and straight to ER if unable to lower temp less than 101.0 after medication given *Warm salt water gargles may help to soothe the throat *Throat Lozenges *Warm fluids like tea with honey may help to soothe the throat *Sleep elevated *Humidifier/Vaporizer Follow up IMMEDIATELY for new or worsening symptoms or no Noticeable improvement over the next 48-72 hours. 911 for difficulty breathing or swallowing You were tested for today for COVID19 your test result should be back in the next 24-48 hours, you may check your results on the [facility] My Health Portal Make sure to take your Vitamins Vit. C Vit D and Zinc if you can take them Referrals: Vicente Jolley MD [Primary Care Provider] - As needed Forms: Work/School Release Time of Disposition: 17:55 Medical Decision Making - Kelvin Inquiry Pt receiving controlled substance: No Kelvin was queried for this patient: No Vital Signs: 12/05/21 17:25 Temperature 98.4 F Temperature Source Oral Pulse Rate [Right Brachial] 88 Respiratory Rate 18 Blood Pressure [Right Arm] 153/97 H Blood Pressure Mean [Right Arm] 115 Blood Pressure Source [Right Arm] Automatic Cuff Blood Pressure Position [Right Arm] Sitting 02 Sat by Pulse Oximetry 98 Oxygen Delivery Method Room Air Orders (Tests/Meds): ORDERS Category Date Time Status Covid-19 Nasal PCR ([facility]) Routine Lab 12/05/21 17:25 Re[place] [facility] [place] - General Stated complaint: covid test, weakness,muscle pain Time Seen by Provider: 12/05/21 17:52 Mode of Arrival: Ambulatory Source of Information: Patient Limitations: No Limitations Description of Symptoms (Recalled from Triage Doc. by RN): PATIENT C/O COUGH, SWEATS AND BODY ACHES THAT STARTED SATURDAY HEENT Symptoms (Recalled from RN notes): No Resp Symptoms (Recalled from RN notes): Yes Skin Symptoms (Recalled from RN notes): No MS Symptoms (Recalled from RN notes): No Functional Status (Recalled from RN notes): WNL - History of Present Illness Provider Complaint: Patient states that she started feeling bad on Saturday States that she has been having sore throat, bodyaches, headache, nasal congestion and fatigue States that today she was at work and felt more fatigue and body aches and she was concerned that she may have COVID so she came in to get tested - Related Data Previous Rx's Medication Instructions Recorded umeclidinium 62.5 mcg-vilanterol 1 inh INHALATION DAILY #60 each 07/10/21 25 mcg/actuation powdr for inhalation levothyroxine 150 mcg tablet See Rx Instructions .ROUTE 07/27/21 .COMPLEX #90 tab albuterol sulfate 90 mcg/actuation 2 puff INHALATION Q8H PRN #8.5 g 09/05/21 aerosol inhaler atorvastatin 10 mg tablet See Rx Instructions .ROUTE 09/05/21 .COMPLEX #90 tab lisinopril 20 mg tablet See Rx Instructions .ROUTE 09/05/21 .COMPLEX #90 tab gabapentin 600 mg tablet 600 mg PO HS #30 tab 10/31/21 oxycodone-acetaminophen 10 mg-325 1 tab PO QID PRN #120 tab 10/31/21 mg tablet Azithromycin [Zithromax 250mg 250 mg PO DIRECTED #6 tab 11/25/21 tab] predniSONE [Prednisone 20mg 20 mg PO BID #10 tab 11/25/21 Tab] Allergies Allergy/AdvReac Type Severity Reaction Status Date / Time No Known Allergies Allergy Verified 10/31/21 15:58 - Worker's Comp Is this a Worker's Comp case?: No [facility] History - Hepatitis A Screen Attestation statement:: This patient has been screened for Hepatitis A risk factors. I
[2021-12-05 17:56] VITALS: BP 153/97; PULSE 88; RESP 18; TEMP 36.9; O2SAT 98
== END 2021-12-05 18:00 | disposition home or self-care (01) ==
PROVIDERS: Emergency Provider Nurse Practitioner; PCP Emergency Medicine
DX: U07.1 COVID-19 (principal); R53.1 Weakness; R52 Pain, unspecified
CPT/HCPCS: 99212; C9803; G0463; U0003; U0005

== ENCOUNTER → 2022-04-20 13:30 | Outpatient (CLI) | payer OTHER, SELFPAY ==
[2022-04-20 20:52] LABS: Amphetamine/Metha Screen,Urine Negative ng/ml (<1000)
[2022-04-20 20:53] LABS: Barbiturates Screen,Urine Negative ng/ml (<200); Benzodiazepines Screen,Urine Negative ng/ml (<200)
[2022-04-20 20:54] LABS: Cannabinoid Screen,Urine Negative ng/ml (<50)
[2022-04-20 20:55] LABS: Cocaine Screen,Urine Negative ng/ml (<300)
[2022-04-20 20:56] LABS: Methadone Screen,Urine Negative ng/ml (<300); Opiate Screen,Urine Negative ng/ml (<300)
[2022-04-20 20:57] LABS: Phencyclidine Screen,Urine Negative ng/ml (<25)
== END ==
LOC: LAB.DROPOF 05-09 13:30
PROVIDERS: PCP Emergency Medicine; Visit Provider Emergency Medicine
DX: M54.9 Dorsalgia, unspecified (principal)
CPT/HCPCS: 80305

== ENCOUNTER → 2022-11-30 13:53 | Outpatient (CLI) | payer OTHER, SELFPAY ==
[2022-11-30 13:37] LABS: Basophils # 0.1 K/mm3 (0-0.2); Basophils % 0.7 % (0.1-2.0); Eosinophils # 0.4 K/mm3 (0.0-0.4); Eosinophils % 4.3 % (0.1-12.0); Hematocrit 42.4 % (37.0-47.0); Hemoglobin 13.4 g/dL (12.2-16.2); Lymphocytes % 47.1 % (10-50); Mean Corpuscular HGB Conc 31.6 g/dL (31.8-35.4); Mean Corpuscular Hemoglobin 30.1 pg (27.0-31.2); Mean Corpuscular Volume 95.2 fl (81-99); Mean Platelet Volume 10.7 fl (7.4-10.4); Monocytes # 0.5 K/mm3 (0.1-1.0); Monocytes % 6.2 % (1.7-9.3); Neutrophils # 3.5 K/mm3 (1.8-7.8); Neutrophils % 41.8 % (37.0-80.0); Platelet Count 284 K/mm3 (142-424); Red Blood Count 4.46 M/mm3 (4.20-5.40); Red Cell Distribution Width 13.1 % (11.5-17.5); White Blood Count 8.5 K/mm3 (4.8-10.8)
[2022-11-30 13:46] LABS: Amphetamine/Metha Screen,Urine Negative ng/ml (<1000)
[2022-11-30 13:47] LABS: Barbiturates Screen,Urine Negative ng/ml (<200); Benzodiazepines Screen,Urine Negative ng/ml (<200)
[2022-11-30 13:49] LABS: Cannabinoid Screen,Urine Negative ng/ml (<50)
[2022-11-30 13:50] LABS: Cocaine Screen,Urine Negative ng/ml (<300); Methadone Screen,Urine Negative ng/ml (<300)
[2022-11-30 13:51] LABS: Opiate Screen,Urine Positive ng/ml (<300)
[2022-11-30 13:52] LABS: Phencyclidine Screen,Urine Negative ng/ml (<25)
[2022-11-30 13:58] LABS: Alanine Aminotransferase 16 U/L (12-78); Albumin/Globulin Ratio 1.5 (1.1-1.8); Alkaline Phosphatase 58 U/L (38-126); Anion Gap 13.6 mEq/L (5-15); Aspartate Amino Transferase 26 U/L (14-36); Bilirubin,Total 0.4 mg/dl (0.2-1.3); Blood Urea Nitrogen 18 mg/dl (7-17); Calcium 8.8 mg/dl (8.4-10.2); Carbon Dioxide 24 mmol/L (22.0-30.0); Chloride 107 mmol/L (98-107); Chol/HDL Ratio 5.3 (1-3.5); Cholesterol 271 mg/dl (140-200); Estimated Glomerular Filt Rate 103 ml/min (>60); GFR (African American) 125 ML/MIN (>60); Globulin 2.6 g/dL (1.3-3.2); Glucose 79 mg/dl (74-100); HDL Cholesterol 51 mg/dl (40-60); Potassium 3.6 mmoL/L (3.5-5.1); Sodium 141 mmol/L (136-145); Total Protein,Serum 6.6 g/dl (6.3-8.2); Triglycerides 266 mg/dl (30-150); VLDL Cholesterol 53 mg/dL (0-40)
[2022-11-30 14:03] LABS: 25-OH Vitamin D, Total 24.9 ng/mL (30-100)
[2022-11-30 14:09] LABS: Direct LDL Cholesterol 160.89 mg/dL (100-129)
[2022-11-30 22:45] LABS: Free T4 (Free Thyroxine) 0.54 ng/dl (0.78-2.19)
== END ==
LOC: LAB.DROPOF 13:54
PROVIDERS: PCP Emergency Medicine; Visit Provider Emergency Medicine
DX: I10 Essential (primary) hypertension (principal); E55.9 Vitamin D deficiency, unspecified; Z79.899 Other long term (current) drug therapy
CPT/HCPCS: 80053; 80061; 80305; 82306; 84439; 84443; 85025

== ENCOUNTER → 2023-01-16 16:09 | Outpatient (CLI) | payer OTHER, SELFPAY ==
[2023-01-16 16:14] LABS: Adenovirus,PCR Not Detected (NotDetected); Bordetella Pertussis Not Detected (NotDetected); Chlamydophila Pneumoniae, PCR Not Detected (NotDetected); Coronavirus 19, PCR Not Detected (NotDetected); Coronavirus 229E Not Detected (NotDetected); Coronavirus NL63 Not Detected (NotDetected); Coronavirus OC43 Not Detected (NotDetected); Coronovirus HKU1,PCR Not Detected (NotDetected); Human Metapneumovirus Not Detected (NotDetected); Influenza A, PCR Not Detected (NotDetected); Influenza AH1, 2009 Not Detected (NotDetected); Influenza AH1, PCR Not Detected (NotDetected); Influenza AH3,PCR Not Detected (NotDetected); Influenza B, PCR Not Detected (NotDetected); Mycoplasma Pneumoniae, PCR Not Detected (NotDetected); Parainfluenza 1, PCR Not Detected (NotDetected); Parainfluenza 2, PCR Not Detected (NotDetected); Parainfluenza 3, PCR Not Detected (NotDetected); Parainfluenza 4, PCR Not Detected (NotDetected); Respiratory Syncytial Virus Not Detected (NotDetected)
[2023-01-16 17:48] LABS: Rhinovirus/Enterovirus Detected (NotDetected)
== END ==
LOC: LAB 16:10
PROVIDERS: PCP Emergency Medicine; Visit Provider Nurse Practitioner Family
DX: J02.9 Acute pharyngitis, unspecified (principal); B34.1 Enterovirus infection, unspecified
CPT/HCPCS: 87070; 87581; 87632; 87798

== ENCOUNTER → 2023-02-13 08:45 | Outpatient (CLI) | payer OTHER, SELFPAY ==
[2023-01-25 21:07] LABS: Amphetamine/Metha Screen,Urine Negative ng/ml (<1000)
[2023-01-25 21:08] LABS: Barbiturates Screen,Urine Negative ng/ml (<200); Benzodiazepines Screen,Urine Negative ng/ml (<200)
[2023-01-25 21:09] LABS: Cannabinoid Screen,Urine Negative ng/ml (<50); Cocaine Screen,Urine Negative ng/ml (<300)
[2023-01-25 21:10] LABS: Methadone Screen,Urine Negative ng/ml (<300)
[2023-01-25 21:11] LABS: Opiate Screen,Urine Positive ng/ml (<300); Phencyclidine Screen,Urine Negative ng/ml (<25)
== END ==
LOC: LAB.DROPOF 08:45
PROVIDERS: PCP Emergency Medicine; Visit Provider Emergency Medicine
DX: M54.16 Radiculopathy, lumbar region (principal)
CPT/HCPCS: 80305

== ENCOUNTER → 2023-02-25 12:30 | Outpatient (CLI) | payer OTHER, SELFPAY ==
[2023-02-25 19:05] LABS: Influenza A, PCR Not Detected (NotDetected); Influenza B, PCR Not Detected (NotDetected)
[2023-02-25 20:06] LABS: Coronavirus 19, PCR Detected (NotDetected)
== END ==
LOC: LAB.DROPOF 03-05 13:46
PROVIDERS: PCP Internal Medicine; Visit Provider Internal Medicine
DX: R06.02 Shortness of breath (principal); U07.1 COVID-19
CPT/HCPCS: 87636

== ENCOUNTER → 2023-03-25 06:29 | Outpatient (CLI) | payer OTHER, SELFPAY ==
[2023-03-25 20:26] LABS: Amphetamine/Metha Screen,Urine Negative ng/ml (<1000); Cannabinoid Screen,Urine Negative ng/ml (<50)
[2023-03-25 20:27] LABS: Barbiturates Screen,Urine Negative ng/ml (<200)
[2023-03-25 20:28] LABS: Benzodiazepines Screen,Urine Negative ng/ml (<200); Cocaine Screen,Urine Negative ng/ml (<300)
[2023-03-25 20:29] LABS: Methadone Screen,Urine Negative ng/ml (<300); Opiate Screen,Urine Positive ng/ml (<300)
[2023-03-25 20:30] LABS: Phencyclidine Screen,Urine Negative ng/ml (<25)
== END ==
LOC: LAB.DROPOF 03-26 06:30
PROVIDERS: PCP Emergency Medicine; Visit Provider Emergency Medicine
DX: M54.16 Radiculopathy, lumbar region (principal)
CPT/HCPCS: 80305

== ENCOUNTER 2023-06-04 13:56 | Outpatient (CLI) | payer OTHER, SELFPAY ==
[2023-06-04 13:03] LABS: Basophils # 0.1 K/mm3 (0-0.2); Basophils % 0.8 % (0.1-2.0); Eosinophils # 0.2 K/mm3 (0.0-0.4); Eosinophils % 2.7 % (0.1-12.0); Hematocrit 47.1 % (37.0-47.0); Lymphocytes # 2.5 K/mm3 (0.7-4.5); Lymphocytes % 29.2 % (10-50); Mean Corpuscular HGB Conc 31.9 g/dL (31.8-35.4); Mean Corpuscular Hemoglobin 30.9 pg (27.0-31.2); Mean Corpuscular Volume 96.7 fl (81-99); Mean Platelet Volume 9.4 fl (7.4-10.4); Monocytes # 0.5 K/mm3 (0.1-1.0); Monocytes % 6.1 % (1.7-9.3); Neutrophils # 5.3 K/mm3 (1.8-7.8); Neutrophils % 61.2 % (37.0-80.0); Platelet Count 289 K/mm3 (142-424); Red Blood Count 4.87 M/mm3 (4.20-5.40); Red Cell Distribution Width 12.5 % (11.5-17.5); White Blood Count 8.6 K/mm3 (4.8-10.8)
[2023-06-04 14:08] LABS: Alanine Aminotransferase 17 U/L (12-78); Albumin Level 4.2 g/dl (3.5-5.0); Albumin/Globulin Ratio 1.6 (1.1-1.8); Alkaline Phosphatase 49 U/L (38-126); Anion Gap 8.3 mEq/L (5-15); Aspartate Amino Transferase 24 U/L (14-36); Bilirubin,Total 0.3 mg/dl (0.2-1.3); Blood Urea Nitrogen 13 mg/dl (7-17); Calcium 9.4 mg/dl (8.4-10.2); Carbon Dioxide 27 mmol/L (22.0-30.0); Chloride 108 mmol/L (98-107); Chol/HDL Ratio 4.4 (1-3.5); Cholesterol 205 mg/dl (140-200); Estimated Glomerular Filt Rate 86 ml/min (>60); GFR (African American) 104 ML/MIN (>60); Globulin 2.6 g/dL (1.3-3.2); Glucose 87 mg/dl (74-100); HDL Cholesterol 47 mg/dl (40-60); Potassium 4.3 mmoL/L (3.5-5.1); Sodium 139 mmol/L (136-145); Total Protein,Serum 6.8 g/dl (6.3-8.2); Triglycerides 150 mg/dl (30-150); VLDL Cholesterol 30 mg/dL (0-40)
[2023-06-04 14:19] LABS: Direct LDL Cholesterol 122.43 mg/dL (100-129)
[2023-06-04 14:21] LABS: 25-OH Vitamin D, Total 39.2 ng/mL (30-100)
[2023-06-04 14:42] LABS: Thyroid Stimulating Hormone 0.32 uIU/mL (0.465-4.68)
[2023-06-04 18:14] LABS: Creatinine,Urine Random 105 mg/dL (Not Estab.)
[2023-06-04 18:19] LABS: Microalbumin/Creatinine Ratio 6.9
[2023-06-04 19:38] LABS: Amphetamine/Metha Screen,Urine Negative ng/ml (<1000); Barbiturates Screen,Urine Negative ng/ml (<200); Benzodiazepines Screen,Urine Negative ng/ml (<200); Cannabinoid Screen,Urine Negative ng/ml (<50); Cocaine Screen,Urine Negative ng/ml (<300); Methadone Screen,Urine Negative ng/ml (<300); Opiate Screen,Urine Negative ng/ml (<300); Phencyclidine Screen,Urine Negative ng/ml (<25)
== END 2023-06-04 23:59 ==
LOC: LAB.DROPOF 13:56
PROVIDERS: PCP Internal Medicine; Visit Provider Internal Medicine
DX: Z79.899 Other long term (current) drug therapy (principal); E55.9 Vitamin D deficiency, unspecified; E03.9 Hypothyroidism, unspecified; R53.83 Other fatigue; K59.00 Constipation, unspecified; Z68.28 Body mass index [BMI] 28.0-28.9, adult
CPT/HCPCS: 80053; 80061; 80307; 82043; 82306; 82570; 84443; 85025

== ENCOUNTER 2023-07-03 20:57 | Outpatient (CLI) | payer OTHER, SELFPAY ==
[2023-07-03 19:03] LABS: Thyroid Stimulating Hormone 0.08 uIU/mL (0.465-4.68)
[2023-07-05 08:22] LABS: HBsAg Screen Negative (Negative); HCV Ab Non Reactive (Non Reactive); HIV Screen 4th Generation wRfx Non Reactive (Non Reactive); Hep A Ab, IGM Negative (Negative); Hep B Core Ab, IgM Negative (Negative)
== END 2023-07-03 23:59 ==
LOC: LAB.DROPOF 20:57
PROVIDERS: PCP Internal Medicine; Visit Provider Internal Medicine
DX: E03.9 Hypothyroidism, unspecified (principal); E55.9 Vitamin D deficiency, unspecified; Z20.5 Contact with and (suspected) exposure to viral hepatitis; Z71.6 Tobacco abuse counseling; K59.00 Constipation, unspecified; Z11.4 Encounter for screening for human immunodeficiency virus [HIV]
CPT/HCPCS: 80074; 84443; 86703; G0432

== ENCOUNTER 2023-08-01 22:35 | Outpatient (CLI) | payer OTHER, SELFPAY ==
[2023-08-01 20:35] LABS: Thyroid Stimulating Hormone 1.32 uIU/mL (0.465-4.68)
== END 2023-08-01 23:59 ==
LOC: LAB.DROPOF 22:35
PROVIDERS: PCP Internal Medicine; Visit Provider Internal Medicine
DX: E03.9 Hypothyroidism, unspecified (principal)
CPT/HCPCS: 84443

== ENCOUNTER 2023-10-24 12:04 | Outpatient (CLI) | payer OTHER, SELFPAY ==
[2023-10-24 19:08] LABS: Thyroid Stimulating Hormone 9.66 uIU/mL (0.465-4.68)
== END 2023-10-24 23:59 | disposition home or self-care (01) ==
LOC: LAB.DROPOF 10-25 12:05
PROVIDERS: PCP Internal Medicine; Visit Provider Internal Medicine
DX: E03.9 Hypothyroidism, unspecified (principal)
CPT/HCPCS: 84443

== ENCOUNTER 2023-11-11 14:56 | Outpatient (POV) | payer OTHER, SELFPAY | END 2023-11-11 23:59 | disposition home or self-care (01) | LOC: SC 14:56 | PROVIDERS: Visit Provider Internal Medicine Nephrology | DX: Z00.00 Encounter for general adult medical examination without abnormal findings (principal) ==

== ENCOUNTER 2023-11-11 15:40 | Outpatient (CLI) | payer OTHER, SELFPAY ==
[2023-11-11 15:48] LABS: Microscopic, Urine URINE MICROSCOPIC (MICROSCOPIC)
[2023-11-11 16:09] LABS: Appearance,Urine Slightly Cloudy (Clear); Bilirubin,Urine 1+ (Negative); Blood, Urine TRACE-I (Negative); Color,Urine Dark Yellow (Yellow); Glucose,Urine (UA) Negative (Negative); Ketones,Urine Negative (Negative); Leukocyte Esterase,Urine Negative (Negative); Nitrate,Urine Negative (Negative); Protein,Urine Negative (Negative); Specific Gravity, Urine 1.025 (1.005-1.030); Urobilinogen,Urine 0.2 EU/dl (0.2)
[2023-11-11 16:23] LABS: Bacteria,Urine Trace /lpf
[2023-11-11 18:27] LABS: Chloride 103 mmol/L (98-107); Potassium 4.5 mmoL/L (3.5-5.1); Sodium 140 mmol/L (136-145)
[2023-11-11 18:28] LABS: Albumin Level 4.2 g/dl (3.5-5.0)
[2023-11-11 18:30] LABS: Anion Gap 13.5 mEq/L (5-15); Carbon Dioxide 28 mmol/L (22.0-30.0); Glucose 91 mg/dl (74-100); Phosphorous 4.4 mg/dl (2.5-4.5)
[2023-11-11 18:53] LABS: Blood Urea Nitrogen 19 mg/dl (7-17); Estimated Glomerular Filt Rate 74 ml/min (>60); GFR (African American) 89 ML/MIN (>60)
== END 2023-11-11 23:59 | disposition home or self-care (01) ==
LOC: LAB 15:42
PROVIDERS: PCP Internal Medicine; Visit Provider Internal Medicine Nephrology
DX: N28.9 Disorder of kidney and ureter, unspecified (principal)
CPT/HCPCS: 36415; 80069; 81001

== ENCOUNTER 2023-11-28 09:51 | Outpatient (CLI) | payer OTHER, SELFPAY ==
[2023-11-28 19:48] LABS: Free T4 (Free Thyroxine) 1.62 ng/dl (0.78-2.19)
[2023-11-28 20:06] LABS: Thyroid Stimulating Hormone 3.17 uIU/mL (0.465-4.68)
[2023-11-30 07:14] LABS: Triiodothyronine (T3) Free 2.9 pg/mL (2.0-4.4)
[2023-11-30 08:17] LABS: Thyroid Peroxidase Antibodies >600 IU/mL (0-34)
[2023-12-02 16:12] LABS: Thyroglobulin Level <1.0 IU/mL (0.0-0.9)
== END 2023-11-28 23:59 | disposition home or self-care (01) ==
LOC: LAB.DROPOF 11-29 09:51
PROVIDERS: PCP Internal Medicine; Visit Provider Internal Medicine
DX: E03.9 Hypothyroidism, unspecified (principal); R53.83 Other fatigue
CPT/HCPCS: 84439; 84443; 84481; 86376; 86800

== ENCOUNTER 2023-12-19 07:00 | Outpatient (CLI) | payer OTHER, SELFPAY ==
--- NOTE | 2023-12-19 07:00 | NM_ITS ---
FINAL REPORT CLINICAL HISTORY: elevated antibodies FINDINGS: Nuclear medicine thyroid 123 [id number] uptake and imaging. PROCEDURE: The patient received an oral dose of 352 uCi I-123. Imaging of the thyroid was performed at 24 hours. 24-hour uptake was performed. Thyroid imaging: The thyroid gland appears normal in size . There may be a warm nodule in the inferior right lobe. Correlate with prior thyroid ultrasound. IMPRESSION: Possible nodule in the inferior right lobe. Thyroid uptake: 24-hour uptake 14%, normal IMPRESSION: Normal radio-iodine uptake within the neck Reviewed, Interpreted and Dictated by Fabiano Patel MD Transcribed by Paula Russell Authenticated and . [facility]
[2023-12-19] MEDS: ISOTOPE I 123;100 UCI TABLET 3 EACH PO (09:55)
== END 2023-12-19 23:59 | disposition home or self-care (01) ==
LOC: RAD 07:00
PROVIDERS: PCP Internal Medicine; Visit Provider Internal Medicine
DX: E03.9 Hypothyroidism, unspecified (principal)
CPT/HCPCS: 78014; A9516

== ENCOUNTER 2023-12-24 13:30 | Outpatient (CLI) | payer OTHER, SELFPAY ==
--- NOTE | 2023-12-24 13:31 | US_ITS ---
FINAL REPORT TECHNIQUE: Sonographic images of the thyroid were obtained. CLINICAL HISTORY: abnormal TSH FINDINGS: The thyroid parenchyma is extremely heterogeneous. The right lobe of the thyroid measures 4.7 x 1.4 x 1.9 cm. The left lobe of the thyroid measures 4.8 x 1.7 x 1.9 cm. The isthmus measures 2 mm. IMPRESSION: Heterogeneous thyroid most suggestive of goiter without evidence of neoplasm. Reviewed, Interpreted and Dictated by Fabiano Patel MD Transcribed by Dolores Cesar Authenticated and [facility]
== END 2023-12-24 23:59 | disposition home or self-care (01) ==
LOC: RAD 13:31
PROVIDERS: PCP Internal Medicine; Visit Provider Internal Medicine
DX: E03.9 Hypothyroidism, unspecified (principal)
CPT/HCPCS: 76536

== ENCOUNTER 2024-01-21 10:47 | Outpatient (CLI) | payer OTHER, SELFPAY ==
[2024-01-21 19:30] LABS: HDL Cholesterol 60 mg/dl (40-60); Triglycerides 220 mg/dl (30-150); VLDL Cholesterol 44 mg/dL (0-40)
[2024-01-21 19:42] LABS: Direct LDL Cholesterol 234.26 mg/dL (100-129)
[2024-01-21 19:44] LABS: Chol/HDL Ratio 5.8 (1-3.5); Cholesterol 348 mg/dl (140-200)
== END 2024-01-21 23:59 | disposition home or self-care (01) ==
LOC: LAB.DROPOF 01-22 10:48
PROVIDERS: PCP Internal Medicine; Visit Provider Internal Medicine
DX: E78.5 Hyperlipidemia, unspecified (principal)
CPT/HCPCS: 80061

== ENCOUNTER 2024-01-23 08:53 | Outpatient (CLI) | payer OTHER, SELFPAY ==
[2024-01-23 19:50] LABS: HDL Cholesterol 55 mg/dl (40-60); Triglycerides 227 mg/dl (30-150); VLDL Cholesterol 45 mg/dL (0-40)
[2024-01-23 20:01] LABS: Direct LDL Cholesterol 228.05 mg/dL (100-129)
[2024-01-23 20:06] LABS: Cholesterol 328 mg/dl (140-200)
[2024-01-23 20:58] LABS: Vitamin B12 586 pg/mL (239-931)
== END 2024-01-23 23:59 | disposition home or self-care (01) ==
LOC: LAB.DROPOF 01-24 08:54
PROVIDERS: PCP Internal Medicine; Visit Provider Internal Medicine
DX: E78.5 Hyperlipidemia, unspecified (principal); E66.3 Overweight; Z68.29 Body mass index [BMI] 29.0-29.9, adult; R53.83 Other fatigue
CPT/HCPCS: 80061; 82607; 82746

== ENCOUNTER 2024-06-10 11:00 | Outpatient (CLI) | payer BC, SELFPAY ==
[2024-06-10 18:02] LABS: Coronavirus 19, PCR Not Detected (NotDetected); Influenza A, PCR Not Detected (NotDetected); Influenza B, PCR Not Detected (NotDetected)
[2024-06-10 18:16] LABS: Basophils # 0.1 K/mm3 (0-0.2); Basophils % 0.6 % (0.1-2.0); Eosinophils # 0.3 K/mm3 (0.0-0.4); Eosinophils % 2.2 % (0.1-12.0); Hematocrit 41.7 % (37.0-47.0); Hemoglobin 13.2 g/dL (12.2-16.2); Lymphocytes # 2.1 K/mm3 (0.7-4.5); Lymphocytes % 18.7 % (10-50); Mean Corpuscular HGB Conc 31.7 g/dL (31.8-35.4); Mean Corpuscular Hemoglobin 30.2 pg (27.0-31.2); Mean Corpuscular Volume 95.4 fl (81-99); Mean Platelet Volume 11.9 fl (7.4-10.4); Monocytes # 0.9 K/mm3 (0.1-1.0); Neutrophils % 70.2 % (37.0-80.0); Platelet Count 267 K/mm3 (142-424); Red Blood Count 4.37 M/mm3 (4.20-5.40); Red Cell Distribution Width 12.6 % (11.5-17.5); White Blood Count 11.3 K/mm3 (4.8-10.8)
[2024-06-10 19:16] LABS: Thyroid Stimulating Hormone 4.14 uIU/mL (0.465-4.68)
== END 2024-06-10 23:59 | disposition home or self-care (01) ==
LOC: LAB.DROPOF 06-11 12:45
PROVIDERS: PCP Internal Medicine; Visit Provider Internal Medicine
DX: U07.1 COVID-19 (principal); J06.9 Acute upper respiratory infection, unspecified; E03.9 Hypothyroidism, unspecified
CPT/HCPCS: 84443; 85025; 87636

== ENCOUNTER 2024-08-06 21:24 | Outpatient (CLI) | payer BC, SELFPAY ==
[2024-08-06 22:01] LABS: Cholesterol 149 mg/dl (140-200); Triglycerides 111 mg/dl (30-150); VLDL Cholesterol 22 mg/dL (0-40)
[2024-08-06 22:02] LABS: Chol/HDL Ratio 3.2 (1-3.5); HDL Cholesterol 47 mg/dl (40-60)
[2024-08-06 22:09] LABS: Microalbumin/Creatinine Ratio 22.3
[2024-08-06 22:17] LABS: Creatinine,Urine Random 95 mg/dL (Not Estab.)
== END 2024-08-06 23:59 | disposition home or self-care (01) ==
LOC: LAB.DROPOF 21:25
PROVIDERS: PCP Internal Medicine; Visit Provider Internal Medicine
DX: E78.2 Mixed hyperlipidemia (principal); I10 Essential (primary) hypertension
CPT/HCPCS: 80061; 82043; 82570

== ENCOUNTER 2024-10-22 09:06 | Outpatient (CLI) | payer BC, SELFPAY ==
--- NOTE | 2024-10-22 09:14 | XR_ITS ---
FINAL REPORT CLINICAL HISTORY: Right hand pain COMPARISON: None FINDINGS: RIGHT HAND Three views show no evidence of acute displaced fracture or dislocation of the visualized bony architecture. There are mild diffuse degenerative changes. Arthritic disease is most pronounced of the second DIP joint. There is generalized osteopenia. IMPRESSION: Arthritic disease as above. Reviewed, Interpreted and Dictated by Fabiano Patel MD Transcribed by Lianna Barker Authenticated and [facility]
== END 2024-10-22 23:59 | disposition home or self-care (01) ==
LOC: RAD 09:09
PROVIDERS: PCP Family Medicine; Visit Provider Physician Assistant
DX: M19.041 Primary osteoarthritis, right hand (principal); M85.841 Other specified disorders of bone density and structure, right hand; M65.319 Trigger thumb, unspecified thumb
CPT/HCPCS: 73130

== ENCOUNTER 2024-11-03 15:10 | Outpatient (CLI) | payer BC, SELFPAY ==
[2024-11-03 20:34] LABS: Coronavirus 19, PCR Not Detected (NotDetected); Human Rhinovirus Not Detected (NotDetected); Influenza A, PCR Not Detected (NotDetected); Influenza B, PCR Not Detected (NotDetected); Respiratory Syncytial Virus Not Detected (NotDetected)
== END 2024-11-03 23:59 | disposition home or self-care (01) ==
LOC: LAB.DROPOF 11-04 09:53
PROVIDERS: PCP Nurse Practitioner; Visit Provider Nurse Practitioner
DX: R52 Pain, unspecified (principal)
CPT/HCPCS: 87631

== ENCOUNTER 2025-01-07 12:05 | Outpatient (CLI) | payer BC, SELFPAY ==
[2025-01-07 15:05] LABS: Hematocrit 43.4 % (37.0-47.0); Hemoglobin 14.2 g/dL (12.2-16.2); Immature Granulocytes % 0.3 %; Mean Corpuscular HGB Conc 32.7 g/dL (31.8-35.4); Mean Corpuscular Hemoglobin 30.7 pg (27.0-31.2); Mean Corpuscular Volume 93.9 fl (81-99); Nucleated Red Blood Cells % 0 %; Platelet Count 282 K/mm3 (142-424); Red Blood Count 4.62 M/mm3 (4.20-5.40); Red Cell Distribution Width-SD 42.5 fL; White Blood Count 7.9 K/mm3 (4.8-10.8)
[2025-01-07 15:43] LABS: Albumin Level 4.6 g/dl (3.5-5.0); Chloride 102 mmol/L (98-107); Potassium 3.7 mmoL/L (3.5-5.1); Sodium 141 mmol/L (136-145)
[2025-01-07 15:45] LABS: Blood Urea Nitrogen 15 mg/dl (7-17); Creatinine,Serum 0.60 mg/dl (0.52-1.04); Estimated Glomerular Filt Rate 102 ml/min (>60); GFR (African American) 123 ML/MIN (>60)
[2025-01-07 15:46] LABS: Alanine Aminotransferase 16 U/L (12-78); Albumin/Globulin Ratio 1.6 (1.1-1.8); Alkaline Phosphatase 61 U/L (38-126); Anion Gap 15.7 mEq/L (5-15); Aspartate Amino Transferase 22 U/L (14-36); Bilirubin,Total 0.5 mg/dl (0.2-1.3); Calcium 9.5 mg/dl (8.4-10.2); Carbon Dioxide 27 mmol/L (22.0-30.0); Cholesterol 168 mg/dl (140-200); Globulin 2.8 g/dL (1.3-3.2); Glucose 97 mg/dl (74-100); Total Protein,Serum 7.4 g/dl (6.3-8.2); Triglycerides 180 mg/dl (30-150)
[2025-01-07 15:47] LABS: HDL Cholesterol 54 mg/dl (40-60)
[2025-01-07 16:02] LABS: Free T4 (Free Thyroxine) 1.52 ng/dl (0.78-2.19)
[2025-01-07 16:17] LABS: Thyroid Stimulating Hormone 2.27 uIU/mL (0.465-4.68)
--- OUTSIDE RECORDS SUMMARY | 2025-01-08 11:16 | XMS_ITS | Clinical Summary ---
Author Organization [facility] Address [address] [id number] Care Team Providers Care Globe Cleaner Name Role Phone Ameya Yin DO Primary Care Provider [phone] Allergies No known active allergies Medications albuterol 108 (90 Base) MCG/ACT inhaler 4 (four) times a day. Active atorvastatin (Lipitor) 20 MG tablet Take 1 tablet (20 mg) by mouth 1 (one) time each day. Active clonazePAM (KlonoPIN) 0.5 MG tablet Take 1 tablet (0.5 mg) by mouth 1 (one) time each day. Active Cholecalciferol (VITAMIN D-3 PO) Take by mouth. 1250 mcg weekly Active gabapentin (Neurontin) 600 MG tablet Take 1 tablet (600 mg) by mouth every night. Active LEVOTHYROXINE SODIUM PO Take by mouth. Activ e lisinopril-hydr oCHLOROthiazide 20-12.5 MG tablet Take 1 tablet by mouth 1 (one) time each day. Active oxyCODONE-aceta minophen (Percocet) 10-325 MG tablet Active Umeclidinium-Vi lanterol (Anoro) 62.5-25 MCG/ACT aerosol powder aerosol powder Inhale 1 Inhalation 1 (one) time each day. Active amitriptyline (Elavil) 25 MG tablet 4 Active busPIRone (Buspar) 7.5 MG tablet 4 Active folic acid (Folvite) 1 MG tablet 4 Active methotrexate 2.5 MG tablet 4 Active minocycline 100 MG capsule 4 Active pramipexole (Mirapex) 0.125 MG tablet 01/02/202 4 Active Family History Medical History Relation Name Comments Diabetes Father Hypertension Father Hypertension Mother Relation Name Status Comments Father Mother Social History Tobacco Use Types Packs/Day Years Used Date Smoking Tobacco: Every Day Cigarettes Smokeless Tobacco: Never Tobacco Cessation:Ready to Q uit: No; Counseling Given: No Alcohol Use Standard Drinks/Week Comments Never 0 (1 standard drink = 0.6 oz pur e alcohol) PHQ-2 Answer Date Recorded Patient Health Questionnaire-2 Score 0 11/11/2023 Comments Unknown Sex and Gender Information Value Date Recorded Sex Assigned at Not on file Legal Sex Female 12:44 PM EST Gender Identity Not on file Sexual Orientation Not on file Last Filed Vital Signs Vital Sign Reading Time Taken Comments Blood Pressure 117/82 11/11/2023 2:48 PM EDT Pulse 109 11/11/2023 2:48 PM EDT Temperature - - Respiratory Rate 16 11/11/2023 2:48 PM EDT Oxygen Saturation 97% 11/11/2023 2:48 PM EDT Inhaled Oxygen Concentration - - Weight 80.4 kg (177 lb 3.2 oz) 11/11/2023 2:48 P M EDT Height 170.2 cm (5' 7 ) 11/11/2023 2:48 PM EDT Body Mass Index 27.75 11/11/2023 2:48 PM EDT Plan of Treatment Health Maintenance Due Date Last Done Comments [facility]-Depression Screening 1965 [facility]-Infant/Child/Adol SDOH Screenings 1965 [facility]- SDOH Screenings 1983 [facility]-Adult SDOH Screenings 1983 [facility]-Hepatitis B Vaccines (1 of 3 - 19+ 3-dose series) 01/06/1984 [facility]-Pap Smear 1986 [facility]-Cervical Cancer Screening 1995 [facility]-HPV/Cotest 1995 CT Colonography 2010 Colonoscopy 2010 FIT-DNA 2010 FIT 2010 FOBT 2010 Sigmoidoscopy 2010 [facility]-Colorectal Cancer Screening 2010 [facility]-Pneumococcal Vaccine: 50 + Years (1 of 1 - PCV) 2015 [facility]-Zoster Vaccines (1 of 2) 2015 [id number] Vaccine (2 - 2023- season) 2024 11/21/2020 [facility]-Influenza Vaccine (#1) 02/01/202504/11, 04/20/2022, 04/12/2020 [facility]-DTaP,Tdap,and Td Vaccine s (2 - Td or Tdap) 03/07/2028 03/07/2018 HPV Vaccines Aged Out No longer eligi ble based on patient's age to complete this topic [facility]-HIB Vaccines Aged Out No longer e ligible based on patient's age to complete this topic [facility]-Hepatitis A Vaccines Aged Out No longer eligible based on patient's age to complete this topic [facility]-IPV Vaccines Aged Out No longer e ligible based on patient's age to complete this topic [facility]-Rotavirus Vaccines Aged Out No lo nger eligible based on patient's age to complete this topic Insurance [employer] Care Teams Globe Cleaner Relationship Specialty Start Date End Date Ameya Yin DO [address] [place] [address] PCP - General 07/03/23
== END 2025-01-07 23:59 | disposition home or self-care (01) ==
LOC: LAB.DROPOF 01-08 11:07
PROVIDERS: PCP Family Medicine; Visit Provider Family Medicine
DX: J44.9 Chronic obstructive pulmonary disease, unspecified (principal); I10 Essential (primary) hypertension; E78.2 Mixed hyperlipidemia; E03.9 Hypothyroidism, unspecified
CPT/HCPCS: 80053; 80061; 84439; 84443; 85025